=== PATIENT | male | born 1980 | race Caucasian/White ===

== ENCOUNTER 2019-09-29 13:05 | Emergency (ER) | payer OTHER, SELFPAY ==
[2019-09-29 13:21] VITALS: BP 130/83; PULSE 78; RESP 16; TEMP 36.4; O2SAT 98
--- NOTE | 2019-09-29 13:37 | ED.SKABFB ---
HPI - Skin/Abscess/Foreign Bdy General Chief complaint: Skin/Abscess/Foreign Body Stated complaint: Abscess/Facial Time Seen by Provider: 09/29/19 13:32 Source: patient and RN notes reviewed Mode of arrival: ambulatory Limitations: no limitations History of Present Illness HPI narrative: Patient presents today complaining of itching and redness to his forehead. Reports the itching started 2 days ago and he scratched this area profusely during several hours of a car ride. States the redness has become worse since onset. Reports he went to a [facility] clinic and he was told he needed an incision and drainage of the area. He denies any current pain. gave him some anti-itch cream to use without relief. No recent antibiotic use. No history of abscesses, boils, staph infections or MRSA. MD complaint: discoloration Related Data Allergies Allergy/AdvReac Type Severity Reaction Status Date / Time No Known Allergies Allergy Verified 09/29/19 13:26 Review of Systems Review of Systems: Narrative: CONSTITUTIONAL: Denies body aches, fever, chills, or sweats. EYES: Denies visual changes, redness, or discharge. ENT: Denies rhinorrhea, congestion, sore throat, or otalgia. CARDIOVASCULAR: Denies chest pain, palpitations, or edema. RESPIRATORY: Denies cough or dyspnea. GASTROINTESTINAL: Denies abdominal pain, nausea, vomiting, or diarrhea. GENITOURINARY: Denies dysuria or hematuria. SKIN: Itching and redness to the forehead MUSCULOSKELETAL: Denies back pain, joint pain, or myalgia. NEUROLOGIC: Denies headache, numbness, tingling, or weakness. PSYCH: Denies depression or anxiety. PMFSH Social History Social History Gender identity (if verbalized by the patient): Male Comments At time of signature, I have reviewed and agree with nursing past medical, surgical, social and family history unless otherwise noted. Please see nursing chart for further information. There is no relevant family history pertinent to the presenting complaint Exam Narrative: Exam Narrative: GENERAL: Well-appearing, well-nourished, and in no acute distress. HEAD: Normocephalic, atraumatic. EYES: EOMI. No redness or drainage. Conjunctivae normal. ENT: Mucous membranes pink and moist. NECK: Normal AROM. CHEST: No respiratory distress. EXTREMITIES: Normal range of motion. No edema. SKIN: Warm, dry, no rash. 3.5x4cm area of erythema and induration. No fluctuance noted. No drainage or opening in the skin noted. This area does not need to be lanced at this time. Appearance is consistent with cellulitis. NEURO: No focal deficits. Alert and oriented x3. Gait steady. PSYCH: Normal affect. No signs of depression or anxiety. Course Vital Signs Vital signs: Vital Signs Temperature 97.6 F 09/29/19 13:21 Pulse Rate 78 09/29/19 13:21 Respiratory Rate 16 09/29/19 13:21 Blood Pressure 130/83 09/29/19 13:21 Pulse Oximetry 98 09/29/19 13:21 Temperature 97.6 F 09/29/19 13:21 Pulse Rate 78 09/29/19 13:21 Respiratory Rate 16 09/29/19 13:21 Blood Pressure 130/83 09/29/19 13:21 Pulse Oximetry 98 09/29/19 13:21 Reviewed. Pt has been instructed to follow up with his PCP regarding his elevated blood pressure today. MDM - Skin/Abscess/Foreign Bdy Differential Diagnosis Differential diagnosis: Likely abscess of skin or subcutaneous tissue, urticaria, allergic reaction to drug, cellulitis, eczema, impetigo and contact dermatitis Critical Care Time Critical Care Time Critical Care Time: No Discharge Plan Discharge Clinical Impression: Cellulitis of forehead Patient Disposition: Home, Self-Care Condition: Stable Instructions: Antibiotic Form, Cellulitis (DC) Additional Instructions: You have been diagnosed with cellulitis, infection in the skin and tissue on your forehead. You do not currently have an active abscess that needs to be lanced. Please take Keflex as prescribed until gone. You can take Benadryl or
== END 2019-09-29 13:46 | disposition home or self-care (01) ==
PROVIDERS: Emergency Provider Nurse Practitioner
DX: L03.211 Cellulitis of face (principal)
CPT/HCPCS: 99203; G0463